=== PATIENT | male | born 1995 | race Caucasian/White ===

== ENCOUNTER 2016-06-16 07:47 | Outpatient (CLI) | payer OTHER | END 2016-06-16 23:59 | DX: J11.1 Influenza due to unidentified influenza virus with other respiratory manifestations (principal) ==

== ENCOUNTER 2017-01-08 09:46 | Outpatient (CLI) | payer OTHER | END 2017-01-08 09:47 | LOC: LAB.WCP 09:46 | PROVIDERS: ATTEND Physician Assistant Medical | DX: A74.9 Chlamydial infection, unspecified (principal) | CPT/HCPCS: 87491; 87591 ==